=== PATIENT | male | born 1965 | race Caucasian/White ===

== ENCOUNTER 2018-10-09 10:58 | Emergency (ER) | payer OTHER ==
[2018-10-09] MEDS ORDERED: KETOROLAC 30 MG/ML VIAL IVP ONE (11:18)
[2018-10-09] MEDS ORDERED: ONDANSETRON HCL IV 4 MG/2 ML VIAL IV ONE (11:18)
--- NOTE | 2018-10-09 11:22 | Emergency Department Record ---
History of Present Illness - General Chief complaint: Flank Pain Stated complaint: ABD PAIN Time Seen by Provider: 10/09/18 11:12 Source: Patient Mode of Arrival: Ambulatory Limitations: No limitations - History of Present Illness Initial comments: The patient is here due to progressively worsening R flank pain for one day. The pain is sharp and stabbing and located in the R flank. The pain is worse with bending and twisting but the patient denies any injury or trauma. He has had no nausea, vomiting, diarrhea, fever, or dysuria. The patient has had a kidney stone in the past and was able to pass it on his own. MD Complaint: Other Onset/Timin -: Days(s) Location: Right flank Radiation: RUQ Severity: Severe Severity scale (1-10): 10 Quality: Sharp, Stabbing Consistency: Constant Improves with: None Worsens with: None Reports: Denies other symptoms - Related Data Previous Rx's Medication Instructions Recorded Cyclobenzaprine HCl [Flexeril] 10 mg PO TID PRN #20 tablet 10/09/18 Naproxen [Naprosyn] 500 mg PO BID #14 tablet. 10/09/18 Allergies Allergy/AdvReac Type Severity Reaction Status Date / Time No Known Drug Allergies Allergy Unverified 10/09/18 10:36 Travel Screening - Travel/Exposure Within Last 30 Days Have you traveled within the last 30 days?: No Review of Systems Constitutional: Denies: Chills, Fever Eyes: Denies: Eye discharge ENT: Denies: Congestion Respiratory: Denies: Cough Cardiovascular: Denies: Arrhythmia, Chest pain Endocrine: Denies: Fatigue Gastrointestinal: Reports: Abdominal pain. Denies: Diarrhea, Nausea, Vomiting Genitourinary: Denies: Dysuria Musculoskeletal: Denies: Arthralgia Skin: Denies: Bruising Past Medical History - SOCIAL HISTORY Smoking Status: Former smoker Alcohol Use: Heavy Drug Use: None - RESPIRATORY Hx Respiratory Disorders: No - CARDIOVASCULAR Hx Cardio Disorders: No - NEURO Hx Neuro Disorders: No - GI Hx GI Disorders: No - Hx Genitourinary Disorders: Yes Hx Kidney Stones: Yes - ENDOCRINE Hx Endocrine Disorders: No - MUSCULOSKELETAL Hx Musculoskeletal Disorders: No - PSYCH Hx Psych Problems: No - HEMATOLOGY/ONCOLOGY Hx Hematology/Oncology Disorders: No Family Medical History Any Significant Family History?: No Physical Exam - General General Appearance: Alert, Oriented x3, Cooperative, No acute distress - Head Head exam: Atraumatic, Normocephalic, Normal inspection - Eye Eye exam: Normal appearance, PERRL - Neck Neck exam: Normal inspection, Full ROM. negative: Tenderness - Respiratory Respiratory exam: Normal lung sounds bilaterally. negative: Respiratory distress - Cardiovascular Cardiovascular Exam: Regular rate, Normal rhythm, Normal heart sounds - GI/Abdominal GI/Abdominal exam: Soft, Normal bowel sounds. negative: Tenderness - Extremities Extremities exam: Normal inspection, Full ROM, Normal capillary refill. negative: Tenderness - Back Back exam: Reports: Normal inspection, Paraspinal tenderness (There is 100% reproducible tenderness to palpation over the muscles of the R flank. The pain also is improved with any chest flexion or rotation.). Denies: Vertebral tenderness Image of Body Front/Back: 1 - Area of pain and reproducible tenderness. - Neurological Neurological exam: Alert. negative: Motor sensory deficit - Psychiatric Psychiatric exam: negative: Anxious - Skin Skin exam: negative: Rash Course Vital Signs 10/09/18 11:04 Temperature 98.6 F Pulse Rate [ 95 H Pulse Ox Probe] Respiratory 18 Rate Blood Pressure 168/127 [Left Arm] Pulse Ox 100 - Reevaluation(s) Reevaluation #1: The patient is doing better at this time. He is resting comfortably with no new complaints. I did explain to him that his workup for kidney stones is neg. The patient is to see his PCP next week for recheck. 10/09/18 12:19 Medical Decision Making - Data Complexity MDM Data: Labs Ordered and/or Reviewed, X-Ray Ordered and/or Reviewed - Lab Data Result diagrams: 10/09/18 11:15 10/09/18 11:15 - Radiology Data Radiology results: Report reviewed (Abd CT: Neg for any acute issues, Neg for stone or hydro.) Disposition Disposition: Discharge Clinical Impression: Flank pain, acute Disposition: Home, Self-Care Condition: (2) Stable Instructions: Flank Pain (ED) Additional Instructions: Please rest when possible with no lifting or bending. Please take the Naprosyn and Flexeril as directed. Please see your family doctor for recheck next week and bring your lab results and CT report for further viewing and evaluation. Also have your blood pressure rechecked. Prescriptions: Cyclobenzaprine HCl [Flexeril] 10 mg PO TID PRN #20 tablet PRN Reason: Pain Naproxen [Naprosyn] 500 mg PO BID #14 tablet.dr Forms: Patient Portal Access Time of Disposition: 12:23 Quality - Quality Measures Quality Measures: N/A - Blood Pressure Screening View Details: Yes Does Patient Have Any of the Following: No Blood Pressure Classification: Hypertensive Reading Systolic Measurement: 162 Diastolic Measurement: 108 Screening for High Blood Pressure: < First Hypertensive BP, F/U Documented > [G8950] First Hypertensive Follow-up Interventions: Referral to alternative/primary care provider.
[2018-10-09 11:23] LABS: URINE APPEARANCE CLEAR; URINE BILIRUBIN NEGATIVE (NEGATIVE); URINE BLOOD NEGATIVE (NEGATIVE); URINE COLOR YELLOW; URINE GLUCOSE (UA) NEGATIVE (NEGATIVE); URINE KETONE NEGATIVE (NEGATIVE); URINE LEUKOCYTE ESTERASE NEGATIVE (NEGATIVE); URINE NITRITE NEGATIVE (NEGATIVE); URINE PROTEIN NEGATIVE (NEGATIVE)
[2018-10-09 11:33] LABS: ABSOLUTE NEUTROPHIL COUNT 8.68; BASO % 0.6 % (0-6); EOS % 0.8 % (0-6); GRAN % 73.3 % (47-80); HEMATOCRIT 54.6 % (42.0-52.0); LYMPH % 16.9 % (16-45); MEAN CELL VOLUME 91.9 fl (81-97); MEAN CORPUSCULAR HGB CONC 34.8 g/dl (32-36); MEAN PLATELET VOLUME 9.8 fl (7.4-10.4); MONO % 8.4 % (0-9); PLATELET COUNT 311 K/uL (130-400); RED BLOOD COUNT 5.94 M/uL (4.40-5.70); RED CELL DISTRIBUTION WIDTH 14.4 % (11.5-14.5); WHITE BLOOD COUNT W/O DIFF 11.8 K/uL (4.2-12.2)
[2018-10-09 11:35] LABS: MEAN CORPUSCULAR HEMOGLOBIN 31.9 pg (27-33)
[2018-10-09 11:46] LABS: BLOOD UREA NITROGEN 6 mg/dL (6-20); CREATININE 0.9 mg/dL (0.7-1.2); EST GLOMERULAR FILTRATION RATE > 60 mL/min
[2018-10-09 11:47] LABS: TOTAL PROTEIN 8.1 g/dL (6.6-8.7)
[2018-10-09 11:49] LABS: GLUCOSE,RANDOM 96 mg/dL (74-109)
[2018-10-09 11:51] LABS: ALT/SGPT 20 U/L (<41)
[2018-10-09 11:52] LABS: ALBUMIN 4.8 g/dL (4.0-5.0); ALKALINE PHOSPHATASE 124 U/L (40-129); AST/SGOT 29 U/L (10.0-50.0); BILIRUBIN,DIRECT < 0.2 mg/dL (0-0.3)
--- NOTE | 2018-10-10 12:40 | CT SCAN REPORT ---
EXAM: CT SCAN OF THE ABDOMEN AND PELVIS WITHOUT CONTRAST HISTORY: RIGHT FLANK PAIN. TECHNIQUE: Standard CT imaging of the abdomen and pelvis was performed without contrast. Comparison: None. FINDINGS: There is mild atelectasis or scarring at the right lung base. The lung bases are otherwise clear. There is mild hepatic steatosis. The gallbladder is surgically absent. The biliary tree, pancreas, spleen, and adrenal glands are normal. The kidneys and ureters are unremarkable. There is no urinary tract calculus or obstructive uropathy. Only a small amount of stool is present within the colon. The majority of the colon is decompressed. The small bowel loops are normal in caliber. The appendix is visualized and is unremarkable. There is no pneumoperitoneum or ascites. The urinary bladder and prostate appear normal. Degenerative changes are present within the spine. There are no acute osseous abnormalities. IMPRESSION: 1. NO ACUTE INTRAABDOMINAL PATHOLOGY. THERE IS NO URINARY TRACT CALCULUS OR OBSTRUCTIVE UROPATHY. 2. NORMAL APPENDIX. 3. HEPATIC STEATOSIS. JOB NUMBER: [id number] MTDD
== END 2018-10-09 12:34 | disposition home or self-care (01) ==
LOC: ER 10:58
DX: R10.11 Right upper quadrant pain (principal); R03.0 Elevated blood-pressure reading, without diagnosis of hypertension; Z87.442 Personal history of urinary calculi; Z87.891 Personal history of nicotine dependence
CPT/HCPCS: 99284 ×2; 96374; 85025; 80076; 80048; 81003; 74176; J1885